=== PATIENT | female | born 1990 ===

== ENCOUNTER 2018-08-24 00:18 | Emergency (ER) | payer SELFPAY ==
[2018-08-24 01:24] LABS: BASO # 0.1 K/uL (0.0-0.2); BASO % 0.7 % (0.0-2.0); EOS # 0.2 K/uL (0.0-0.7); HEMOGLOBIN 12.8 g/dL (12.0-16.0); LYMPH # 2.8 K/uL (1.0-4.3); LYMPH % 38.9 % (20.0-40.0); MEAN CELL VOLUME 83.7 fl (81.0-99.0); MEAN CORPUSCULAR HEMOGLOBIN 27.7 pg (27.0-31.0); MEAN CORPUSCULAR HGB CONC 33.1 g/dL (33.0-37.0); MEAN PLATELET VOLUME 8.4 fl (7.2-11.7); MONO # 0.8 K/uL (0.0-0.8); MONO % 10.3 % (0.0-10.0); NEUT # 3.5 K/uL (1.8-7.0); NEUT % 48.1 % (50.0-75.0); RBC 4.61 Mil/uL (3.80-5.20); RED CELL DISTRIBUTION WIDTH 12.3 % (11.5-14.5); WHITE BLOOD COUNT 7.3 K/uL (4.8-10.8)
[2018-08-24 01:29] LABS: URINE BACTERIA RARE (<OCC); URINE BILIRUBIN NEGATIVE (NEGATIVE); URINE BLOOD NEGATIVE (NEGATIVE); URINE CLARITY CLEAR (Clear); URINE COLOR STRAW (YELLOW); URINE GLUCOSE (UA) NEG (NEGATIVE); URINE LEUKOCYTE ESTERASE NEG Leu/uL (Negative); URINE PROTEIN NEGATIVE (NEGATIVE); URINE UROBILINOGEN 0.2-1.0 mg/dL (0.2-1.0)
[2018-08-24 01:36] LABS: ALB/GLOB RATIO 1.4 (1.0-2.1); ALBUMIN 4.7 g/dL (3.5-5.0); ALT/SGPT 20 U/L (9-52); AST/SGOT 25 U/L (14-36); BLOOD UREA NITROGEN 14 mg/dl (7-17); CALCIUM 9.2 mg/dL (8.4-10.2); GFR NON-AFRICAN AMERICAN > 60
--- NOTE | 2018-08-24 02:05 | ED PDOC ---
HPI: Back Time Seen by Provider: 08/24/18 00:33 Chief Complaint (Nursing): Abdominal Pain History Per: Patient Additional Complaint(s): Pt. states for the past week she's had R sided flank pain that has progressively worsened. States today pain became worse and associated with SOB prompting ED visit. Denies trauma, cough, hx of DVT or PE, leg pain or swelling, hormonal therapy, recent surgery, chest pain, abdominal pain, N/V/D, previous abdominal surgeries, hematuria, dysuria, incontinence. Past Medical History Reviewed: Historical Data, Nursing Documentation, Vital Signs Vital Signs: Last Vital Signs Temp 98 F 08/24/18 00:27 Pulse 79 08/24/18 00:27 Resp 18 08/24/18 00:27 BP 113/76 08/24/18 00:27 Pulse Ox 100 08/24/18 00:27 Primary Care Provider: FAMILY PROVIDER,NO - Medical History PMH: No Chronic Diseases Denies: Deep Vein Thrombosis, Pulmonary Embolism - Surgical History Surgical History: - Family History Family History: States: No Known Family Hx - Home Medications Home Medications: Ambulatory Orders Medication Instructions Recorded Naproxen [Naprosyn] 500 mg PO BID PRN #10 tab 08/24/18 - Allergies Allergies/Adverse Reactions: Allergies Allergy/AdvReac Type Severity Reaction Status Date / Time No Known Allergies Allergy Verified 08/24/18 00:28 Review of Systems ROS Statement: Except As Marked, All Systems Reviewed And Found Negative Respiratory: Positive for: Shortness of Breath Musculoskeletal: Positive for: Back Pain Physical Exam - Physical Exam Appears: Positive for: Well, Non-toxic, No Acute Distress Skin: Positive for: Normal Color, Warm. Negative for: Rash Eye Exam: Positive for: Normal appearance Cardiovascular/Chest: Positive for: Regular Rate, Rhythm, Chest Non Tender Respiratory: Positive for: Normal Breath Sounds. Negative for: Accessory Muscle Use, Respiratory Distress Gastrointestinal/Abdominal: Positive for: Normal Exam, Bowel Sounds, Soft, Other (Negative Hassan's sign). Negative for: Tenderness, Organomegaly, Guarding Back: Negative for: L CVA Tenderness, R CVA Tenderness Extremity: Negative for: Calf Tenderness (b/l) Neurological/Psych: Positive for: Awake, Alert, Oriented (x3) - Laboratory Results Result Diagrams: 08/24/18 01:15 08/24/18 01:15 Lab Results: D-Dimer, Quantitative < 200 ng/mlDDU (0-230) 08/24/18 01:15 Total Bilirubin 0.2 mg/dl (0.2-1.3) 08/24/18 01:15 AST 25 U/L (14-36) 08/24/18 01:15 ALT 20 U/L (9-52) 08/24/18 01:15 Alkaline Phosphatase 55 U/L (38-126) 08/24/18 01:15 Total Protein 8.1 G/DL (6.3-8.2) 08/24/18 01:15 Albumin 4.7 g/dL (3.5-5.0) 08/24/18 01:15 Globulin 3.4 gm/dL (2.2-3.9) 08/24/18 01:15 Albumin/Globulin Ratio 1.4 (1.0-2.1) 08/24/18 01:15 Urine Color Straw (YELLOW) 08/24/18 01:15 Urine Clarity Clear (Clear) 08/24/18 01:15 Urine pH 7.0 (5.0-8.0) 08/24/18 01:15 Ur Specific [place] 1.012 (1.003-1.030) 08/24/18 01:15 Urine Protein Negative mg/dL (NEGATIVE) 08/24/18 01:15 Urine Glucose (UA) Neg mg/dL (NEGATIVE) 08/24/18 01:15 Urine Ketones Negative mg/dL (NEGATIVE) 08/24/18 01:15 Urine Blood Negative (NEGATIVE) 08/24/18 01:15 Urine Nitrate Negative (NEGATIVE) 08/24/18 01:15 Urine Bilirubin Negative (NEGATIVE) 08/24/18 01:15 Urine Urobilinogen 0.2-1.0 mg/dL (0.2-1.0) 08/24/18 01:15 Ur Leukocyte Esterase Neg Virgil/uL (Negative) 08/24/18 01:15 Urine RBC (Auto) 1 /hpf (0-3) 08/24/18 01:15 Urine Microscopic WBC 3 /hpf (0-5) 08/24/18 01:15 Urine Bacteria Rare (<OCC) 08/24/18 01:15 - ECG ECG: Positive for: Interpreted By Me ECG Rhythm: Positive for: Sinus Rhythm. Negative for: ST/T Changes Rate: 72 O2 Sat by Pulse Oximetry: 100 - Radiology X-Ray: Interpreted by Me (CXR) X-Ray Interpretation: No Acute Disease - Progress Re-evaluation Time: 02:00 Condition: Re-examined, Improved Disposition - Clinical Impression Clinical Impression: Flank pain - Patient ED Disposition Is Patient to be Admitted: No - Disposition Referrals: [facility] [Outside] Disposition: Routine/Home Disposition Time: 02:05 Condition: IMPROVED Additional Instructions: FOLLOW UP WITH YOUR DOCTOR FOR FURTHER EVALUATION RETURN TO ED IMMEDIATELY IF SYMPTOMS WORSEN SUMI MOORE, thank you for letting us take care of you today. Your provider was Jenise Awad MD and you were treated for RT FLANK PAIN. The emergency medical care you received today was directed at your acute symptoms. If you were prescribed any medication, please fill it and take as directed. It may take several days for your symptoms to resolve. Return to the Emergency Department if your symptoms worsen, do not improve, or if you have any other problems. Please contact your doctor or call one of the physicians/clinics you have been referred to that are listed on the Patient Visit Information form that is included in your discharge packet. Bring any paperwork you were given at discharge with you along with any medications you are taking to your follow up visit. Our treatment cannot replace ongoing medical care by a primary care provider outside of the emergency department. Thank you for allowing the [facility] team to be part of your care today. If you had an X-Ray or CT scan: A Radiologist will review the ED reading if any change in treatment is needed we will contact you. If you had a blood, urine, or wound culture: It will take several days for the results, if any change in treatment is needed we will contact you. If you had an STI test: It will take 48 hours for the results. Please call after 1 week if you have not heard back. Prescriptions: Naproxen [Naprosyn] 500 mg PO BID PRN #10 tab PRN Reason: Pain Instructions: Flank Pain (DC) Print Language: CYMRAES Wells Criteria for PE - Wells Criteria for Pulmonary Embolism Clinical Signs and Symptoms of DVT: No P.E is #1 Diagnosis, or Equally Likely: No Heart Rate >100: No Immobilization at least 3 days;Surgery previous 4 weeks: No Previous, objectively diagnosed PE or DVT: No Hemoptysis: No Malignancy w/treatment within 6 months, or palliative: No Total Score: 0
[2018-08-24 02:53] VITALS: BP 117/56; PULSE 77; RESP 16; TEMP 98.5; O2SAT 99
--- NOTE | 2018-08-24 08:33 | RAD ---
Date of service: 08/24/2018 HISTORY: R flank pain COMPARISON: No prior. TECHNIQUE: Chest PA and lateral views FINDINGS: LUNGS: No active pulmonary disease. PLEURA: No significant pleural effusion identified. No pneumothorax apparent. CARDIOVASCULAR: No aortic atherosclerotic calcification present. Normal cardiac size. No pulmonary vascular congestion. OSSEOUS STRUCTURES: No significant abnormalities. VISUALIZED UPPER ABDOMEN: Normal. OTHER FINDINGS: None. IMPRESSION: No active disease.
--- NOTE | 2018-08-24 11:51 | CARD ---
APPROVED REPORT Date of service: 08/24/2018 EKG Measurement Heart [id number] <Conclusion> Normal sinus rhythm with sinus arrhythmia Normal ECG
== END 2018-08-24 02:53 | disposition home or self-care (01) ==
LOC: H.ER 00:18
DX: R10.9 Unspecified abdominal pain (principal)